=== PATIENT | female | born 1975 | race Caucasian/White ===

== ENCOUNTER → 2018-09-10 | Outpatient (CLI) | payer OTHER ==
--- NOTE | 2018-09-10 11:09 | MM ---
Reason for exam: clinical finding. Last mammogram was performed 10 years and 1 month ago. History: Family history of breast cancer in paternal grandmother. Indicated problem(s): lump or thickening in the right breast. Physical Findings: Nurse Summary: 0.5, 0.25cm nodule in the right breast at 6 o'clock and nipple (nurse dw). MG 3D Diag Mammo W/Cad LEONILA Bilateral CC and MLO view(s) were taken. Prior study comparison: August 09, 2008, mammogram. August 02, 2007, mammogram. There are scattered fibroglandular densities. Finding: There are typically benign coarse calcifications in the subareolar position of the right breast. Focal asymmetry left breast, stable. No significant changes in finding since August 09, 2008 and August 02, 2007. These results were verbally communicated with the patient and result sheet given to the patient on 09/10/18. ASSESSMENT: Incomplete: need additional imaging evaluation, BI-RAD 0 RECOMMENDATION: Ultrasound of the right breast.
--- NOTE | 2018-09-10 11:12 | USB ---
Reason for exam: additional evaluation requested from abnormal screening. History: Family history of breast cancer in paternal grandmother. US Breast Limited RT Right limited breast ultrasound including focal area of concern, retroareolar and axilla demonstrates a 0.4 x 0.1 x 0.3cm oval, mixed lesion at 5 o'clock, questionable skin lesion, shadowing from calcifications. These results were verbally communicated with the patient and result sheet given to the patient on 09/10/18. ASSESSMENT: Benign, BI-RAD 2 RECOMMENDATION: Routine screening mammogram of both breasts in 1 year. Manage patient on a clinical basis.
== END ==
LOC: RADMAMWWP 08:16 → MERGE 08:16
PROVIDERS: ATTEND Family Medicine
DX: N63.14 Unspecified lump in the right breast, lower inner quadrant (principal); R92.8 Other abnormal and inconclusive findings on diagnostic imaging of breast
CPT/HCPCS: 77062; 77066

== ENCOUNTER → 2018-09-24 | Outpatient (CLI) | payer OTHER ==
[2018-09-24 09:54] VITALS: BP 124/87; PULSE 106; RESP 18; TEMP 98.8; BMI 25.8
--- NOTE | 2018-09-24 10:25 | P.GSHP ---
History of Present Illness H&P Date: 09/24/18 Chief Complaint: lump in her right breast Dinorah is a 43-year-old white female who presents with a complaint of a nodule in her right breast noted in June 2018. The area was initially tender and the tenderness has somewhat decreased in intensity at this time. She was started on Clarence oil and the decrease in tenderness appears to be consistent with the primrose oil. The patient was underwent a mammogram on 09-10-18, after which an ultrasound of the right breast was recommended. An ultrasound of the right breast performed on the same day the patient was noted to have a 0.4 x 0.3 cm mixed lesion at 5:00. The findings were felt to be benign and routine screening of both breasts in 1 year was recommended. The patient at the time of the mammogram was examined by the nurse and the nurse noted a 0.25 cm nodule in the right breast at 6:00. The patient drinks tea daily, and coffee sporadically, and pop once every 2 weeks. The patient does not smoke she is not exposed to secondhand smoke. The patient eats chocolate several times a month. The pain is worse right before her period. The lump does not change in size with relationship to her period. The patient states her breast do not get engorged at the time of her period but they do become more tender. Family history: 1. paternal grandmother; of breast cancer in her 30's 2. maternal uncle: panceratic cnacer Hormonal History: menarche; 13 : 3, children 3 first at 21, breast fed: all three periods: irregular, less than one time/month BCP: 15 years, stopped secondary to a bicuspid heart valve unsure of the reason hormones: none Past Surgical History: 1. none Past Medical History: 1. bicuspid heart valve/no symptoms found on routine physical Social History: smoke: none alocohol: twice/week drugs: none - Constitutional Constitutional: Denies chills, Denies fever - EENT Eyes: denies blurred vision, denies pain Ears: deny: decreased hearing, tinnitus Ears, nose, mouth and throat: Denies headache, Denies sore throat - Breasts Breasts: bilateral: as per HPI - Cardiovascular Comment: bicuspid aortic valve Cardiovascular: Denies chest pain, Denies shortness of breath - Respiratory Respiratory: Denies cough, Denies 7 - Gastrointestinal Gastrointestinal: Denies abdominal pain, Denies diarrhea, Denies nausea, Denies vomiting - Genitourinary (Female) Genitourinary: Denies dysuria, Denies hematuria - Menstruation Comment: irregular periods - Musculoskeletal Musculoskeletal: Denies myalgias - Integumentary Integumentary: Denies pruritus, Denies rash - Neurological Neurological: Denies numbness, Denies weakness - Psychiatric Psychiatric: Denies anxiety, Denies depression - Endocrine Endocrine: Denies fatigue, Denies weight change - Hematologic/Lymphatic Comment: none - Allergic/Immunologic Comment: none Past Medical History Additional Past Medical History / Comment(s): Bad Heart Valve: followed by Dr. Charito Steen History of Any Multi-Drug Resistant Organisms: None Reported Past Surgical History: No Surgical Hx Reported Smoking Status: Former smoker - Past Family History Father Additional Family Medical History / Comment(s): PATERNAL GRANDMOTHER BREAST CANCER Medications and Allergies Home Medications Medication Instructions Recorded Confirmed Type Evening Clarence Oil 500 mg PO TID 09/24/18 09/24/18 History Vitamin E 1,000 unit PO QAM 09/24/18 09/24/18 History Allergies Allergy/AdvReac Type Severity Reaction Status Date / Time No Known Allergies Allergy Unverified 09/24/18 09:45 Surgical - Exam Vital Signs Temp Pulse Resp BP Pulse Ox 98.8 F 106 H 18 124/87 98 09/24/18 09:46 09/24/18 09:46 09/24/18 09:46 09/24/18 09:46 09/24/18 09:46 BMI 25.8 - General well developed, well nourished, no distress - Eyes normal ocular movement, no icteric - ENT no hearing loss, no congestion - Neck trachea midline - Respiratory normal respiratory effort, clear to auscultation - Cardiovascular Systolic ejection murmur Rhythm: regular Heart Sounds: normal: S1, S2 - Abdomen Abdomen: soft, non tender, no guarding, no rigid, no rebound - Integumentary normal turger - Musculoskeletal normal gait, normal posture - Psychiatric oriented to time, oriented to person, oriented to place, speech is normal, memory intact Breast examination: Right breast: Multi-positional exam fibrocystic changes with increased nodularity in the periareolar area at 6:00 this appears to be consistent with fibrocystic change, no dominate masses of concern Right axilla: No adenopathy of concern Left breast: Fibrocystic changes and multiple positional exam no dominant masses or nodules of concern Left axilla: No adenopathy of concern Results Mammogram and ultrasound results reviewed Assessment and Plan Assessment: Impression: 1. Breast pain right breast, cyclical in nature may be related to caffeine 2. Fibrocystic changes in the breast 3. Small fibrocystic change 6 o'clock position right breast periareolar area 4. Bicuspid aortic valve systolic ejection murmur Plan: 1. Repeat physician exam of the breast in 3 months 2. Patient is going to attempt abstaining from caffeine 3. Patient is on primrose oil and vitamin E 4. Medical management of bicuspid aortic valve I had a discussion with the patient and her regarding breast pain. We have talked about the fact that it hers is cyclical in nature in his most likely hormonally related as well as related to the caffeine. She understands this and will decide if she wants to decrease her caffeine intake. At the present time she is using primrose oil and vitamin E and this seems to be helping. CC: Dr. Waters
== END | disposition home or self-care (01) ==
LOC: MERGE 09:20 → WWCWWP 09:26
PROVIDERS: ATTEND Surgery
DX: Z53.9 Procedure and treatment not carried out, unspecified reason (principal)

== ENCOUNTER → 2018-11-25 | Outpatient (CLI) | payer OTHER ==
--- NOTE | 2018-11-26 07:37 | CT ---
CT CHEST FOR PULMONARY EMBOLISM. EXAMINATION TYPE: CT angio chest DATE OF EXAM: 11/25/2018 INDICATION: Congenital insufficiency of aortic valve CT DLP: 189.7 mGycm, Automated exposure control for dose reduction was used. CONTRAST: Patient injected with 100ml mL of Isovue 370. COMPARISON: None TECHNIQUE: CT of the chest is performed on a spiral scan at 2 mm thick sections. Study is performed with intravenous contrast timed for evaluation for pulmonary embolism. This will limit additional po rtions of the evaluation. 3-D MIP images reconstructed by the technologist are reviewed on the compu ter in the coronal and sagittal planes. FINDINGS: No persistent filling defects are evident to suggest an acute pulmonary embolism. Contrast timed for evaluation of the aorta which limits this portion of the evaluation. Three-D reconstructed images through the thoracic aorta are performed. There is a three-vessel arch. The ascending thoracic aorta at the level of the aortic valve is 3.8 cm. Mid ascending thoracic aorta measures 3.2 cm. The ascending thoracic aorta at the proximal aortic arch is 3.1 cm. The descending thoracic aorta at the level aortic arch is 2.1 cm. The aorta at the level of the diaphragm is 2.3 cm. No mediastinal or hilar adenopathy enlarged by CT criteria is evident. The ascending aorta diameter at the level of the main pulmonary artery is 3.2 cm. The main pulmonary artery diameter at the bifur cation is 2.5 cm. Lung windows are clear. Limited CT section through the upper abdomen are unremarkable. IMPRESSIONS: 1. The thoracic aorta tapers normally through its visualized course.
== END | disposition home or self-care (01) ==
LOC: RADCTMAIN 16:53
PROVIDERS: ATTEND Internal Medicine Interventional Cardiology
DX: Q23.1 Congenital insufficiency of aortic valve (principal)
CPT/HCPCS: 71275; Q9967

== ENCOUNTER → 2022-09-25 | Outpatient (CLI) | payer BC ==
--- NOTE | 2022-09-26 08:24 | MM ---
Reason for Exam: Screening (asymptomatic). Last mammogram was performed 14 year(s) and 1 month(s) ago. Patient History: Menarche at age 14. First Full-Term at age 21. Hormonal Contraceptives, starting at age 19 for 2 years. Maternal grandmother had breast cancer, age 38. Risk Values: Carina 5 year model risk: 0.8%. NCI Lifetime model risk: 8.5%. Prior Study Comparison: 10/17/2004 Left Diagnostic Mammogram, [facility]. 08/02/2007 Bilateral Diagnostic Mammogram, [facility]. 08/09/2008 Bilateral Diagnostic Mammogram, [facility]. Tissue Density: The breast tissue is heterogeneously dense. This may lower the sensitivity of mammography. Findings: Analyzed By CAD. There is no suspicious group of microcalcifications or new suspicious mass in either breast. Overall Assessment: Negative, BI-RAD 1 Management: Screening Mammogram of both breasts in 1 year. A clinical breast exam by your physician is recommended on an annual basis and results should be correlated with mammographic findings. [facility] will attempt to contact patient to return for supplemental views and ultrasound if indicated. Electronically signed and approved by: Shiraz Crowe DO
== END | disposition home or self-care (01) ==
LOC: RADMAMWWP 07:07
PROVIDERS: ATTEND Family Medicine
DX: Z12.31 Encounter for screening mammogram for malignant neoplasm of breast (principal); Z80.3 Family history of malignant neoplasm of breast
CPT/HCPCS: 77063; 77067